=== PATIENT | female | born 1970 ===

== ENCOUNTER → 2025-02-07 | Day surgery (SDC) | payer BC | LOC: SDC 12:08 | PROVIDERS: ATTEND Internal Medicine Gastroenterology | PROC: 4A0B8BZ Measurement of Gastrointestinal Pressure, Via Natural or Artificial Opening Endoscopic (ICD-10-PCS; principal; 2025-02-07) | DX: K22.0 Achalasia of cardia (principal); K21.9 Gastro-esophageal reflux disease without esophagitis; I10 Essential (primary) hypertension; Z91.011 Allergy to milk products; Z79.899 Other long term (current) drug therapy | CPT/HCPCS: 91010; 91034 ==